=== PATIENT | female | born 1950 | race Caucasian/White ===

== ENCOUNTER 2016-10-17 13:53 | Emergency (ER) | payer MEDICARE ==
[~2016-10-17] VITALS: Ht 167.6 cm; Wt 104.5 kg
[2016-10-17] MEDS ORDERED: SING10TA32 PO (14:08)
[2016-10-17] MEDS ORDERED: SIMV40TA2 PO (14:08)
[2016-10-17] MEDS ORDERED: MELO15TA4 PO (14:08)
[2016-10-17] MEDS ORDERED: LOSA25TA8 PO (14:08)
[2016-10-17] MEDS ORDERED: METF750T PO (14:08)
[2016-10-17] MEDS ORDERED: LEVO125T4 PO (14:08)
--- NOTE | 2016-10-17 16:26 | REP ---
LEFT SHOULDER, THREE VIEWS: There is no evidence of an acute fracture, dislocation or intrinsic bone disease. IMPRESSION: No fracture or dislocation. Signed by Russell Holbrook MD 10/18/2016 05:53 P
--- NOTE | 2016-10-17 16:26 | REP ---
LEFT WRIST, FOUR VIEWS: There is no evidence of an acute fracture, dislocation or intrinsic bone disease. IMPRESSION: No fracture or dislocation. Signed by Russell Holbrook MD 10/18/2016 05:52 P
[2016-10-17 16:39] VITALS: BP 153/68
== END 2016-10-17 17:16 | disposition home or self-care (01) ==
LOC: M ED 13:53
DX: E11.65 Type 2 diabetes mellitus with hyperglycemia (principal); M25.512 Pain in left shoulder; M25.532 Pain in left wrist; W19.XXXA Unspecified fall, initial encounter; Y92.9 Unspecified place or not applicable; Y93.9 Activity, unspecified; Y99.8 Other external cause status; R29.6 Repeated falls; I10 Essential (primary) hypertension; Z82.49 Family history of ischemic heart disease and other diseases of the circulatory system; Z79.899 Other long term (current) drug therapy; Z85.42 Personal history of malignant neoplasm of other parts of uterus; Z98.84 Bariatric surgery status; Z98.1 Arthrodesis status